=== PATIENT | male | born 1945 | race Caucasian/White ===

== ENCOUNTER 2017-02-10 19:42 | Emergency (ER) | payer OTHER ==
[~2017-02-10] VITALS: Ht 185.4 cm; Wt 75.0 kg
[~2017-02-10 19:42] MED LIST: DIABETA 5MG5 MG/TAB PO; IMODIUM 2MG CAPS2 MG PO; PEPCID 20MG TAB20 MG PO; TAMIFLU 75MG75 MG PO
[2017-02-10 19:45] VITALS: TEMP 99
[2017-02-10] MEDS ORDERED: ZOCOR 80MG80 MG PO (19:48)
[2017-02-10] MEDS ORDERED: GLUCOPHAGE1000 MG PO (19:48)
[2017-02-10] MEDS ORDERED: HYTRIN 1MG C1 MG/CAP PO (19:49)
[2017-02-10] MEDS ORDERED: ZESTRIL40 MG PO (19:49)
[2017-02-10] MEDS ORDERED: MULTI VITAMINS1 TAB PO (19:50)
[2017-02-10] MEDS ORDERED: TYLENOL 500MG500 MG PO (19:50)
[2017-02-10] MEDS ORDERED: GLUCOSAMINE & C1 TAB PO (19:50)
[2017-02-10 20:27] LABS: BASO # 0.1 (0.0-0.2); BASO % 0.7 % (0.0-2.0); EOS # 0.6 (0.0-0.7); EOS % 6.3 % (0-4.0); GRAN # 6.2 (1.4-6.5); GRAN % 62.8 % (42.2-75.2); HEMOGLOBIN 12.3 g/dl (13.5-18.0); LYMPH # 2.3 (1.2-3.4); MEAN CELL VOLUME 94 fl (80.0-100.0); MEAN CORPUSCULAR HEMOGLOBIN 32 pg (27.0-31.0); MEAN CORPUSCULAR HGB CONC 33 g/dl (33.0-37.0); MEAN PLATELET VOLUME 9.6 fl (7.4-10.4); MONO # 0.7 (0.1-0.6); MONO % 6.6 % (1.7-9.3); PLATELET COUNT 224 K/mm3 (130-400); RED BLOOD COUNT 3.91 M/mm3 (4.20-5.60); WHITE BLOOD COUNT 9.8 K/mm3 (4.8-10.8)
[2017-02-10 20:28] LABS: HEMATOCRIT 36.8 % (42.0-52.0)
[2017-02-10 20:38] LABS: ADJUSTED CALCIUM 9.6 mg/dL (8.4-10.2); ALBUMIN 4.4 gm/dL (3.5-5.0); BILIRUBIN,TOTAL 0.2 mg/dL (0.0-1.0); CALCIUM 9.9 mg/dL (8.4-10.2); CREATININE, serum 0.79 mg/dL (0.66-1.25); POTASSIUM 4.2 mmol/L (3.4-5.0); TOTAL PROTEIN 7.2 gm/dL (6.4-8.2)
[2017-02-10 20:39] LABS: COLLECTION METHOD CLEAN CATCH
[2017-02-10 20:48] LABS: PH 6 (5-8); SQUAMOUS EPITHELIAL None Seen /hpf; URINE APPEARANCE Clear; URINE BACTERIA Rare /hpf; URINE BILIRUBIN Negative (NEGATIVE); URINE BLOOD 3+ (NEGATIVE); URINE COLOR Yellow; URINE GLUCOSE 1+ (NEGATIVE); URINE KETONE Negative (NEGATIVE); URINE LEUKOCYTE ESTERASE Negative (NEGATIVE); URINE PROTEIN(semi-quant) 1+ (NEGATIVE); URINE RBC >50 /hpf; URINE UROBILINOGEN Negative (NEGATIVE)
[2017-02-10 21:53] VITALS: BP 120/74; PULSE 87
== END 2017-02-10 21:53 | disposition home or self-care (01) ==
LOC: COL.ER 19:42
PROVIDERS: Emergency Medicine
DX: R31.9 Hematuria, unspecified (principal); E11.9 Type 2 diabetes mellitus without complications; N40.0 Benign prostatic hyperplasia without lower urinary tract symptoms; D69.6 Thrombocytopenia, unspecified; Z79.84 Long term (current) use of oral hypoglycemic drugs

== ENCOUNTER → 2017-05-16 | Outpatient (CLI) | payer OTHER ==
[~2017-05-16] VITALS: Ht 182.9 cm; Wt 71.7 kg
[~2017-05-16] MED LIST changes: +FLOMAX 0.40.4 MG/CAP PO; +GLUCOPHAGE1000 MG PO; +GLUCOSAMINE & C1 TAB PO; +HYTRIN 1MG C1 MG/CAP PO; +MULTI VITAMINS1 TAB PO; +TYLENOL 500MG500 MG PO; +ZESTRIL40 MG PO; +ZOCOR 80MG80 MG PO
[2017-05-16 12:43] VITALS: BP 140/80; PULSE 64
[2017-05-16 14:13] VITALS: BP 129/66; PULSE 75
== END ==
LOC: COL.RAD 12:30
DX: M43.17 Spondylolisthesis, lumbosacral region (principal); R29.898 Other symptoms and signs involving the musculoskeletal system; G89.29 Other chronic pain; M48.07 Spinal stenosis, lumbosacral region; F41.0 Panic disorder [episodic paroxysmal anxiety]
CPT/HCPCS: J0330; J2250; J2704